=== PATIENT | male | born 1990 | race Caucasian/White ===

== ENCOUNTER → 2016-10-17 12:33 | Emergency (ER) | payer SELFPAY ==
--- NOTE | 2016-10-17 13:31 | ED ---
Skin Complaint - HPI Summary HPI Summary: 26M presents with rash on right shoulder for 4 days. He states the area was more swollen but the swelling has came down. He states the redness has spread. He denies any fevers or feeling ill. He has been on doxcycline for 2 days. He denies any tick bite to the area. He states the area is no longer painful but is occasionally itchy. He denies any new products or soaps. He denies anything draining from the area. He works outdoors taking care of lawns. He does not have a primary. - History of Current Complaint Chief Complaint: EDRashSkinAbscess Time Seen by Provider: 10/17/16 12:46 Stated Complaint: RED RASH ON SHOULDER Pain Intensity: 0 - Allergy/Home Medications Allergies/Adverse Reactions: Allergies Allergy/AdvReac Type Severity Reaction Status Date / Time Amoxicillin Allergy Intermediate Rash Verified 10/17/16 12:38 Penicillins [PCN] Allergy Intermediate Rash Verified 10/17/16 12:38 PMH/Surg Hx/FS Hx/Imm Hx Endocrine/Hematology History: Denies: Hx Anticoagulant Therapy Cardiovascular History: Denies: Hx Hypertension Infectious Disease History: No Infectious Disease History: Denies: Traveled Outside the [place] in Last 30 Days - Family History Known Family History: Positive: Hypertension - Social History Alcohol Use: Occasionally Substance Use Type: Reports: None Smoking Status (MU): Current Some Day Smoker Review of Systems Negative: Fever Negative: Chest Pain Negative: Shortness Of Breath Positive: Rash All Other Systems Reviewed And Are Negative: Yes Physical Exam Triage Information Reviewed: Yes Vital Signs On Initial Exam: Initial Vitals Temp Pulse Resp BP Pulse Ox 97.8 F 74 15 133/82 99 10/17/16 12:34 10/17/16 12:34 10/17/16 12:34 10/17/16 12:34 10/17/16 12:34 Vital Signs Reviewed: Yes Appearance: Positive: Well-Appearing Skin: Positive: Warm, Dry, Other - 12cm by 10cm area of well demarcated cellulitis of right shoulder without any abscess felt, area is not tender to touch Head/Face: Positive: Normal Head/Face Inspection Eyes: Positive: Normal, Conjunctiva Clear ENT: Positive: Normal ENT inspection, Pharynx normal, TMs normal Respiratory/Lung Sounds: Positive: Clear to Auscultation, Breath Sounds Present Cardiovascular: Positive: Normal, RRR Musculoskeletal: Positive: Strength/ROM Intact - right shoulder, Other - good pulses Diagnostics - Vital Signs Vital Signs Temp Pulse Resp BP Pulse Ox 10/17/16 12:48 97.6 F 70 16 129/81 100 10/17/16 12:34 97.8 F 74 15 133/82 99 - Laboratory Lab Statement: Any lab studies that have been ordered have been reviewed, and results considered in the medical decision making process. Course/Dx - Course Course Of Treatment: 26M presents with rash on right shoulder for 4 days. He states the area was more swollen but the swelling has came down. He states the redness has spread. He denies any fevers. He has been on doxcycline for 2 days. has area of erythema 12cm by 10cm that is warm to the touch. patient seen with Dr Lane and discussed options. patient will continue doxcycline for right now and will return to ED for wound check if at that time is spreading will consider changing to clindamycin vs admission. gave warning signs to return to ED earlier for. tavo lyme titers also just in case is lyme. patient understands and agrees with plan - Differential Diagnoses - Skin Complaint Differential Diagnoses: Abscess, Cellulitis, Contact Dermatitis - Diagnoses Provider Diagnoses: cellulitis of right shoulder Discharge - Discharge Plan Condition: Good Disposition: HOME Patient Education Materials: Cellulitis (ED) Referrals: [facility] [place] [facility] [Outside] Additional Instructions: Continue doxycycline twice a day Lyme titers will be done in a week Follow up on Tuesday for wound check in urgent care or ED Return to ED if develop spreading redness, fever, or any new or worsening symptoms
[2016-10-17 13:57] VITALS: BP 122/66
== END | disposition home or self-care (01) ==
LOC: ED 12:33
DX: L03.113 Cellulitis of right upper limb (principal); R21 Rash and other nonspecific skin eruption; Z72.0 Tobacco use
CPT/HCPCS: 86618; 99281